=== PATIENT | male | born 1975 | race Caucasian/White ===

== ENCOUNTER 2019-10-27 23:08 | Emergency (ER) | payer MEDICAID, OTHER ==
[~2019-10-27] VITALS: Ht 172.7 cm; Wt 79.5 kg
[~2019-10-27 23:08] MED LIST: DIVA125T2 PO; RISP3 PO
[2019-10-27] MEDS ORDERED: MIRT-89 PO (23:28)
[2019-10-28 01:55] LABS: AMPHET/METH SCREEN,URINE POSITIVE (NEGATIVE); BARBITURATE SCREEN, URINE NEGATIVE (NEGATIVE); BENZODIAZEPINES SCREEN,URINE NEGATIVE (NEGATIVE); CANNABINOID SCREEN,URINE NEGATIVE (NEGATIVE); COCAINE SCREEN,URINE NEGATIVE (NEGATIVE); METHADONE SCREEN, URINE NEGATIVE (NEGATIVE); OPIATE SCREEN,URINE NEGATIVE (NEGATIVE)
[2019-10-28 02:02] LABS: PHENCYCLIDINE SCREEN,URINE NEGATIVE (NEGATIVE)
[2019-10-28] MEDS ORDERED: HALOPERIDOL 5 MG TABLET PO PRN (03:45)
[2019-10-28] MEDS ORDERED: ZOLPIDEM TARTRATE 10 MG TABLET PO PRN (03:45)
[2019-10-28] MEDS ORDERED: LORazepam 2 MG TABLET PO PRN (03:45)
[2019-10-28 04:39] LABS: BASOPHILS % (AUTO) 0.2 % (0.0-2.0); EOSINOPHILS % (AUTO) 0.3 % (1.0-6.0); HEMOGLOBIN 14.2 g/dL (13.5-17.5); LYMPHOCYTES # (AUTO) 1.7 K/uL (1.0-4.8); LYMPHOCYTES % (AUTO) 12.2 % (22.0-44.0); MEAN CORPUSCULAR HEMOGLOBIN 29.5 pg (26.0-34.0); MEAN CORPUSCULAR HGB CONC 33.8 G/dL (31.0-37.0); MEAN CORPUSCULAR VOLUME 87 fL (80-100); MONOCYTES # (AUTO) 1.2 K/uL (0.1-1.0); MONOCYTES % (AUTO) 8.3 % (2.0-9.0); PLATELET COUNT (AUTO) 254 K/uL (150-450); RED BLOOD CELL COUNT(AUTO) 4.81 MIL/uL (4.50-5.90); RED CELL DISTRIBUTION WIDTH 13.5 % (11.5-14.5)
[2019-10-28 04:48] LABS: ANION GAP 10 mmol/L (8-16); CARBON DIOXIDE 27 mmol/L (22-29); CHLORIDE 101 mmol/L (98-107); CREATININE 0.97 mg/dL (0.60-1.30); GLOMERULAR FILTR. RATE CALC > 60 mL/min (>60); GLUCOSE,RANDOM 104 mg/dL (70-110); POTASSIUM 3.9 mmol/L (3.5-5.1); SODIUM SERUM 138 mmol/L (136-145); UREA NITROGEN, BLOOD 38 mg/dL (7-18)
[2019-10-28 04:55] LABS: ALANINE AMINOTRANSFERASE 28 U/L (12-78); ALBUMIN 3.9 g/dL (3.4-5.0); ALKALINE PHOSPHATASE 82 U/L (46-116); ASPARTATE AMINOTRANSFERASE 70 U/L (15-37); TOTAL PROTEIN, SERUM 7.3 g/dL (6.4-8.2)
[2019-10-28 11:08] VITALS: BP 126/78
== END 2019-10-28 11:15 | disposition other institution (70) ==
LOC: EMS 23:08
DX: F25.9 Schizoaffective disorder, unspecified (principal); F32.9 Major depressive disorder, single episode, unspecified; F41.9 Anxiety disorder, unspecified; F17.210 Nicotine dependence, cigarettes, uncomplicated; F12.90 Cannabis use, unspecified, uncomplicated; Z88.0 Allergy status to penicillin; Z88.8 Allergy status to other drugs, medicaments and biological substances
CPT/HCPCS: 36415; 80053; 80307; 85025; 99285; G0480

== ENCOUNTER 2019-10-28 16:17 | Inpatient (IN) | payer MEDICAID ==
[~2019-10-28] VITALS: Ht 182.9 cm; Wt 91.7 kg
[~2019-10-28 16:17] MED LIST changes: -DIVA125T2 PO; +MIRT-89 PO
[2019-10-28] MEDS ORDERED: HALOPERIDOL 5 MG TABLET PO PRN (17:45)
[2019-10-28] MEDS ORDERED: ZOLPIDEM TARTRATE 10 MG TABLET PO PRN (17:45)
[2019-10-28] MEDS ORDERED: LORazepam 2 MG TABLET PO PRN (17:45)
[2019-10-28] MEDS ORDERED: PNEUMOCOCCAL VACCINE POLYVALENT 0.5 ML VIAL [PPSV23] IM ONE (18:45)
[2019-10-28] MEDS ORDERED: ACETAMINOPHEN 325 MG TABLET PO PRN (19:30)
[2019-10-28] MEDS ORDERED: LOPERAMIDE HCL 2 MG CAPSULE PO PRN (19:30)
[2019-10-28] MEDS ORDERED: BENZOCAINE/MENTHOL LOZENGE MM PRN (19:30)
[2019-10-28] MEDS ORDERED: IBUPROFEN 600 MG TABLET PO PRN (19:30)
[2019-10-28] MEDS ORDERED: CloNIDine HCL 0.1 MG TABLET PO PRN (19:30)
[2019-10-28] MEDS ORDERED: OMEPRAZOLE 20 MG CAPSULE PO PRN (19:30)
[2019-10-28] MEDS ORDERED: MAG HYDROX/AL HYDROX/SIMETH ES 30 ML SUSPENSION UDCUP PO PRN (19:30)
[2019-10-28] MEDS ORDERED: MAGNESIUM HYDROXIDE SUSPENSION 30 ML UDCUP PO PRN (19:30)
[2019-10-28] MEDS ORDERED: ONDANSETRON HCL 4 MG TABLET PO PRN (19:30)
[2019-10-28] MEDS ORDERED: PETROLATUM,WHITE 28 GM JELLY TP PRN (19:30)
[2019-10-28] MEDS ORDERED: BACITRACIN 28.4 GM OINTMENT TP PRN (19:30)
[2019-10-28] MEDS ORDERED: ALBUTEROL SULFATE HFA 90 MCG/PUFF 8 GM INHALER IH PRN (19:30)
[2019-10-28] MEDS ORDERED: DOCUSATE SODIUM 100 MG CAPSULE PO PRN (19:30)
[2019-10-28 19:52] VITALS: BP 117/68
[2019-10-29 06:30] VITALS: BP 104/70
[2019-10-29 16:16] VITALS: BP 121/63
[2019-10-29] MEDS: MIRTAZAPINE 15 MG TABLET PO SCH (20:37)
[2019-10-30 06:00] VITALS: BP 107/64
[2019-10-30 08:09] VITALS: BP 110/57
[2019-10-30] MEDS: RisperiDONE 3 MG TABLET PO SCH ×2 (09:18→16:49)
[2019-10-30 17:14] VITALS: BP 109/72
[2019-10-30] MEDS: MIRTAZAPINE 15 MG TABLET PO SCH (20:00)
[2019-10-31 06:00] VITALS: BP 116/70
[2019-10-31 08:01] VITALS: BP 116/71
[2019-10-31 08:21] LABS: BASOPHILS % (AUTO) 0.6 % (0.0-2.0); EOSINOPHILS % (AUTO) 5.6 % (1.0-6.0); HEMATOCRIT 44.2 % (41-53); HEMOGLOBIN 15.3 g/dL (13.5-17.5); LYMPHOCYTES # (AUTO) 2.4 K/uL (1.0-4.8); LYMPHOCYTES % (AUTO) 38.2 % (22.0-44.0); MEAN CORPUSCULAR HEMOGLOBIN 30.6 pg (26.0-34.0); MEAN CORPUSCULAR HGB CONC 34.6 G/dL (31.0-37.0); MEAN CORPUSCULAR VOLUME 88 fL (80-100); MONOCYTES # (AUTO) 0.6 K/uL (0.1-1.0); MONOCYTES % (AUTO) 8.8 % (2.0-9.0); NEUTROPHILS % (AUTO) 46.8 % (40.0-70.0); PLATELET COUNT (AUTO) 258 K/uL (150-450); RED CELL DISTRIBUTION WIDTH 13.1 % (11.5-14.5)
[2019-10-31 08:51] LABS: ALANINE AMINOTRANSFERASE 27 U/L (12-78); ALBUMIN 3.6 g/dL (3.4-5.0); ALKALINE PHOSPHATASE 74 U/L (46-116); ANION GAP 8 mmol/L (8-16); ASPARTATE AMINOTRANSFERASE 24 U/L (15-37); BILIRUBIN,TOTAL 0.4 mg/dL (0.1-1.0); CALCIUM, TOTAL 9.7 mg/dL (8.8-10.5); CARBON DIOXIDE 30 mmol/L (22-29); CHLORIDE 103 mmol/L (98-107); CHOL/HDL RATIO 4.1 (4.2-7.3); CHOLESTEROL 147 mg/dL (131-200); CREATININE 0.97 mg/dL (0.60-1.30); GLOMERULAR FILTR. RATE CALC > 60 mL/min (>60); GLUCOSE,RANDOM 91 mg/dL (70-110); HDL CHOLESTEROL 36 mg/dL (40-60); LDL CHOL (CALC.) 88 mg/dL (0-130); POTASSIUM 4.4 mmol/L (3.5-5.1); SODIUM SERUM 141 mmol/L (136-145); TOTAL PROTEIN, SERUM 7.4 g/dL (6.4-8.2); TRIGLYCERIDES 117 mg/dL (15-150); UREA NITROGEN, BLOOD 24 mg/dL (7-18)
[2019-10-31 09:04] LABS: HEMOGLOBIN A1C 6.1 % (3.8-5.6)
[2019-10-31] MEDS: RisperiDONE 3 MG TABLET PO SCH ×2 (09:04→16:46)
[2019-10-31 16:02] VITALS: BP_SYST 107; BP_SYST 98; BP_DIAS 68; BP_DIAS 69
[2019-10-31] MEDS: MIRTAZAPINE 15 MG TABLET PO SCH (20:27)
[2019-11-01 06:06] VITALS: BP 108/71
[2019-11-01 08:31] VITALS: BP 102/73
[2019-11-01] MEDS: DIVALPROEX SODIUM 500 MG DR TABLET PO SCH ×2 (09:44→16:23)
[2019-11-01 16:29] VITALS: BP 108/77
[2019-11-01] MEDS: OLANZapine 7.5 MG TABLET PO SCH (20:01)
[2019-11-02 00:17] VITALS: BP 104/60
[2019-11-02 08:10] VITALS: BP 112/72
[2019-11-02] MEDS: DIVALPROEX SODIUM 500 MG DR TABLET PO SCH ×2 (08:49→16:01)
[2019-11-02 16:02] VITALS: BP 118/71
[2019-11-02] MEDS: OLANZapine 7.5 MG TABLET PO SCH (20:09)
[2019-11-03 06:59] VITALS: BP 104/64
[2019-11-03 08:04] VITALS: BP 114/56
[2019-11-03] MEDS: DIVALPROEX SODIUM 500 MG DR TABLET PO SCH ×2 (08:45→16:15)
[2019-11-03 16:20] VITALS: BP 107/57
[2019-11-03] MEDS: OLANZapine 7.5 MG TABLET PO SCH (20:09)
[2019-11-04 05:52] VITALS: BP 106/65
[2019-11-04] MEDS: DIVALPROEX SODIUM 500 MG DR TABLET PO SCH ×2 (07:54→16:42)
[2019-11-04 08:41] VITALS: BP 101/54
[2019-11-04] MEDS ORDERED: DIVA-78 PO (12:35)
[2019-11-04] MEDS ORDERED: OLAN7.5T2 PO (12:35)
== END 2019-11-04 16:45 | disposition home or self-care (01) | DRG 750 ==
LOC: B3A 17:51 → B2S 10-30 15:47
PROVIDERS: ADMIT Psychiatry & Neurology Psychiatry; ATTEND Psychiatry & Neurology Psychiatry
DX: F25.9 Schizoaffective disorder, unspecified (principal); R45.851 Suicidal ideations; I10 Essential (primary) hypertension; F12.90 Cannabis use, unspecified, uncomplicated; F41.0 Panic disorder [episodic paroxysmal anxiety]; F32.9 Major depressive disorder, single episode, unspecified; F15.10 Other stimulant abuse, uncomplicated; G47.00 Insomnia, unspecified; Z88.0 Allergy status to penicillin; Z88.8 Allergy status to other drugs, medicaments and biological substances; F10.10 Alcohol abuse, uncomplicated; Y90.9 Presence of alcohol in blood, level not specified; Z28.21 Immunization not carried out because of patient refusal
CPT/HCPCS: 83036; 84439; 84443; 87081